=== PATIENT | female | born 1995 ===

== ENCOUNTER 2020-03-09 08:56 | Inpatient (IN) | payer MEDICAID ==
[2020-03-09] MEDS ORDERED: Sodium Chloride 0.9% 2.5 ML Syringe FLUSH PRN (09:27)
[2020-03-09] MEDS ORDERED: Ondansetron 4 MG/2 ML SDV IVPUSH PRN (09:27)
[2020-03-09] MEDS ORDERED: Sodium Chloride 0.9% 10 ML SDV IV PRN (09:27)
[2020-03-09] MEDS ORDERED: Methylergonovine 0.2 MG/1 ML Amp IM PRN (09:27)
[2020-03-09] MEDS ORDERED: Lidocaine 1% 50 ML MDV INJECT PRN (09:27)
[2020-03-09] MEDS ORDERED: Tranexamic Acid 1,000 MG in Sodium Chloride 0.9% 100 ML IV PRN (09:27)
[2020-03-09] MEDS ORDERED: Misoprostol 200 MCG Tab PO PRN (09:27)
[2020-03-09] MEDS ORDERED: Sodium Chloride 0.9% 10 ML Syringe FLUSH PRN (09:27)
[2020-03-09] MEDS ORDERED: Water For Irrigation,Sterile 1,000 ML Container IRR PRN (09:27)
[2020-03-09] MEDS ORDERED: Carboprost Tromethamine 250 MCG/1 ML Amp IM PRN (09:27)
[2020-03-09] MEDS ORDERED: Nalbuphine 10 MG/1 ML Vial IVPUSH PRN (09:27)
[2020-03-09] MEDS ORDERED: Oxytocin/0.9 % Sodium Chloride 30 UNIT/500 ML BAG IV SCH ×2 (09:30→18:00)
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
[2020-03-09] MEDS: Lactated Ringers 1,000 ML IV SCH ×2 (17:33→19:23)
[2020-03-09] MEDS ORDERED: Terbutaline 1 MG/ML SDV SUBCUT PRN (17:54)
[2020-03-09] MEDS ORDERED: ePHEDrine 50 MG/ML SDV ONE (18:27)
[2020-03-09] MEDS ORDERED: Bupivicaine/fentaNYL/NS 250 ML ONE (18:27)
--- NOTE | 2020-03-09 19:22 | PCM.PREANE ---
Preanesthetic Assessment - Procedure Proposed Procedure: placement of continuous labor epidural - Anesthesia/Transfusion/Family Hx Anesthesia History: Prior Anesthesia Without Reaction Transfusion History: No Prior Transfusion(s) - Review of Systems General: No Symptoms Pulmonary: No Symptoms Cardiovascular: No Symptoms Gastrointestinal: Other (some GERD symptoms with ) Neurological: No Symptoms Other: Reports: Depression, Anxiety (bipolar) - Physical Assessment NPO Status Date: 03/09/20 NPO Status Time: 16:00 (drinking water) Height: 5 ft 5 in Weight: 89.811 kg ASA Class: 2 Mental Status: Alert & Oriented x3 Airway Class: Mallampati = 2 Dentition: Reports: Normal Dentition Thyro-Mental Finger Breadths: 4 ROM/Head Extension: Full Lungs: Clear to Auscultation, Normal Respiratory Effort Cardiovascular: Regular Rate, Regular Rhythm - Lab Values: Laboratory Last Values WBC 9.27 K/uL (4.0-11.0) 03/09/20 09:45 RBC 3.71 M/uL (4.30-5.90) L 03/09/20 09:45 Hgb 9.9 g/dL (12.0-16.0) L 03/09/20 09:45 Hct 30.9 % (36.0-46.0) L 03/09/20 09:45 MCV 83.3 fL (80.0-98.0) 03/09/20 09:45 MCH 26.7 pg (27.0-32.0) L 03/09/20 09:45 MCHC 32.0 g/dL (31.0-37.0) 03/09/20 09:45 RDW Std Deviation 42.4 fl (28.0-62.0) 03/09/20 09:45 RDW Coeff of [place] 14 % (11.0-15.0) 03/09/20 09:45 Plt Count 160 K/uL (150-400) 03/09/20 09:45 MPV 12.00 fL (7.40-12.00) 03/09/20 09:45 Nucleated RBC % 0.0 /100WBC 03/09/20 09:45 Nucleated RBCs # 0 K/uL 03/09/20 09:45 Blood Type A NEGATIVE 03/09/20 09:45 Antibody Screen NEGATIVE 03/09/20 09:45 - Allergies Allergies/Adverse Reactions: Allergies Allergy/AdvReac Type Severity Reaction Status Date / Time adhesive tape Allergy Rash Verified 02/24/20 08:44 - Anesthesia Plan Pre-Op Medication Ordered: None - Acknowledgements Anesthesia Type Planned: Epidural Pt an Appropriate Candidate for the Planned Anesthesia: Yes Alternatives and Risks of Anesthesia Discussed w Pt/Guardian: Yes Pt/Guardian Understands and Agrees with Anesthesia Plan: Yes PreAnesthesia Questionnaire HEENT History: Reports: Impaired Vision Cardiovascular History: Reports: None Respiratory History: Reports: None Gastrointestinal History: Reports: None Genitourinary History: Reports: Other (See Below) (Recurrent BV) PUBLIC SPEAKER History: Reports: None Musculoskeletal History: Reports: None Neurological History: Reports: None Psychiatric History: Reports: Anxiety, Depression, Suicidal Ideation (03/04/2020, started on Fluoxentine 03/04/2020, verbal contract against self-harm, psychiatry appointment scheduled for 03/19/2020 at 1000 am.) Endocrine/Metabolic History: Reports: None Hematologic History: Reports: Anemia (Diluational anemia in ) Immunologic History: Reports: None Dermatologic History: Reports: None - Infectious Disease History Infectious Disease History: Reports: None - Past Surgical History HEENT Surgical History: Reports: Myringotomy w Tube(s) - SUBSTANCE USE Smoking Status *Q: Former Smoker Tobacco Use Within Last Twelve Months: No Second Hand Smoke Exposure: No Recreational Drug Use History: No - HOME MEDS Home Medications: Home Meds FLUoxetine [PROzac] 10 mg PO DAILY 03/09/20 [History] - CURRENT (IN HOUSE) MEDS Current Meds: Current Medications Carboprost Tromethamine (Hemabate Ds) 250 mcg IM ASDIRECTED PRN PRN Reason: Post Hemorrhage Lactated Ringer's (Ringers, Lactated) 1,000 mls @ 150 mls/hr IV ASDIRECTED JOCELYNE Last Admin: 03/09/20 17:33 Dose: 999 mls/hr Oxytocin/Sodium Chloride (Oxytocin 30 Unit/500 Ml-Ns) 30 unit in 500 mls @ 999 mls/hr IV TITRATE JOCELYNE Tranexamic Acid 1,000 mg/ (Sodium Chloride) 110 mls @ 660 mls/hr IV ONETIME PRN PRN Reason: Bleeding Oxytocin/Sodium Chloride (Oxytocin 30 Unit/500 Ml-Ns) 30 unit in 500 mls @ 2 mls/hr IV TITRATE JOCELYNE; Protocol Lidocaine HCl (Xylocaine 1%) 50 ml INJECT ONETIME PRN PRN Reason: Laceration repair Methylergonovine Maleate (Methergine) 0.2 mg IM ASDIRECTED PRN PRN Reason: Post Hemorrhage Misoprostol (Cytotec) 200 mcg PO ONETIME PRN PRN Reason: Post Hemorrhage Nalbuphine HCl (Nubain) 10 mg IVPUSH Q1H PRN PRN Reason: Pain (severe 7-10) Ondansetron HCl (Zofran) 4 mg IVPUSH Q6H PRN PRN Reason: Nausea/Vomiting Sodium Chloride (Saline Flush) 10 ml FLUSH ASDIRECTED PRN PRN Reason: Keep Vein Open Sodium Chloride (Saline Flush) 2.5 ml FLUSH ASDIRECTED PRN PRN Reason: Keep Vein Open Sodium Chloride (Normal Saline) 10 ml IV ASDIRECTED PRN PRN Reason: IV Use Sterile Water (Sterile Water For Irrigation) 1,000 ml IRR ASDIRECTED PRN PRN Reason: delivery Terbutaline Sulfate (Brethine) 0.25 mg SUBCUT ASDIRECTED PRN PRN Reason: Tacysystole Discontinued Medications Ephedrine Sulfate (Ephedrine Sulfate) Confirm Administered Dose 50 mg .ROUTE .STK-MED ONE Stop: 03/09/20 18:28 Fentanyl/Bupivacaine HCl (Fentanyl/Bupivacaine/Ns 2 Mcg-0.125% 250 Ml) Confirm Administered Dose 250 mls @ as directed .ROUTE .STK-MED ONE Stop: 03/09/20 18:28
[2020-03-09] MEDS ORDERED: oxyCODONE 5 MG Tab PO PRN (23:47)
[2020-03-09] MEDS ORDERED: Witch Hazel Medicated Pads 40/Jar TOP PRN (23:47)
[2020-03-09] MEDS ORDERED: Acetaminophen 500 MG Tab PO PRN ×2 (23:47)
[2020-03-09] MEDS ORDERED: Benzocaine/Menthol 20%-0.5% Spray 78 GM Cannister TOP PRN (23:47)
[2020-03-09] MEDS ORDERED: Bisacodyl 10 MG Supp RECTAL PRN (23:47)
[2020-03-09] MEDS ORDERED: Ibuprofen 400 MG Tab PO PRN (23:47)
[2020-03-09] MEDS ORDERED: Lanolin 100% Cream 7 GM Tube TOP PRN (23:47)
--- NOTE | 2020-03-09 23:58 | PCM.DEL ---
L & D Note - General Info Date of Service: 03/09/20 Mother's Due Date: 03/17/20 - Delivery Note Labor: Spontaneous, Augmented by Oxytocin Delivery Outcome: Livebirth Infant Delivery Method: Spontaneous Vaginal Delivery-Single Infant Delivery Mode: Spontaneous Presentation: Left Occiput Anterior (JANE) Nuchal Cord: None Anesthesia Type: Epidural Amniotic Fluid Description: Clear Episiotomy Type: None Laceration: None Placenta: Intact, Spontaneous ([place]) Cord: 3 Vessels Estimated Blood Loss: 200 Resuscitation Needed: No Spearman: Stimulated, Warmed, [place] Used Score 1 min: 8 Score 5 min: 9 Second Stage Interventions: Reports: Encouragement Given, Pushing Effectively Delivery Comments (Free Text/Narrative):: Aileen is a 24 yo 1-0-3 at 38.6 weeks ([place] 03/17/2020) S/P uncomplicated to viable term NBM with spontaneous cries at . A neg, RI, GBS neg. Agpars 06/07, weight 3700 g (8 lb 3 oz). NBM placed to maternal abdomen, warmed, dried, stimulated. Umbilical cord left intact until pulsation ceased, clamped x 2, cut by support person. Placenta delivered intact, [place], 3VC. Perineum intact. Uterus firm at U, scant rubra lochia. Mother and NBM left skin to skin with RNs at bedside. - General Info Date of Service: 03/09/20 Admission Dx/Problem (Free Text): Patient Status Order with Admit Dx/Problem 03/09/20 09:27 Patient Status [ADT] Routine Admission Diagnosis/Problem Admission Diagnosis/Problem - planned 03/09/20 10:15 Aileen is a 24 yo 1-0-3 at 38.6 weeks ([place] 03/17/2020) that presents to L& D today after SROM of clear, non-odorous fluid at 0730 am today. Patient reports ample movement and increasing intensity of uterine contractions since 0815 am. A neg, RI, GBS neg. Received 28-week RhoGam 12/16/2019. Pertinent hx inclused: PTL this , PTB past , exacerbation of depression, passive suicidal ideations in the last week (started Fluoxetine 2019), Rh negative maternal status. Functional Status: Reports: Pain Controlled - Review of Systems General: Reports: No Symptoms HEENT: Reports: No Symptoms Pulmonary: Reports: No Symptoms Cardiovascular: Reports: No Symptoms Gastrointestinal: Reports: No Symptoms, Other ( uterus) Genitourinary: Reports: No Symptoms Musculoskeletal: Reports: No Symptoms Skin: Reports: No Symptoms Neurological: Reports: No Symptoms Psychiatric: Reports: No Symptoms - Patient Data Weight - Most Recent: 198 lb I&O - Last 24 Hours: Intake & Output 03/09/20 03/09/20 03/10/20 14:59 22:59 06:59 Intake Total 1000 Balance 1000 Lab Results Last 24 Hours: Laboratory Results - last 24 hr 03/09/20 03/09/20 Range/Units 09:45 09:45 WBC 9.27 (4.0-11.0) K/uL RBC 3.71 L (4.30-5.90) M/uL Hgb 9.9 L (12.0-16.0) g/dL Hct 30.9 L (36.0-46.0) % MCV 83.3 (80.0-98.0) fL MCH 26.7 L (27.0-32.0) pg MCHC 32.0 (31.0-37.0) g/dL RDW Std Deviation 42.4 (28.0-62.0) fl RDW Coeff of Mojgan 14 (11.0-15.0) % Plt Count 160 (150-400) K/uL MPV 12.00 (7.40-12.00) fL Nucleated RBC % 0.0 /100WBC Nucleated RBCs # 0 K/uL Blood Type A NEGATIVE Antibody Screen NEGATIVE Med Orders - Current: Current Medications Acetaminophen (Tylenol Extra Strength) 500 mg PO Q4H PRN PRN Reason: Pain Acetaminophen (Tylenol Extra Strength) 1,000 mg PO Q4H PRN PRN Reason: Pain Benzocaine/Menthol (Dermoplast Pain Relief 20%-0.5% [place]) 78 gm TOP ASDIRECTED PRN PRN Reason: Perineal Comfort Measure Bisacodyl (Dulcolax) 10 mg RECTAL ONETIME PRN PRN Reason: Constipation Docusate Sodium (Colace) 100 mg PO BID PRN PRN Reason: Constipation Emollient Ointment (Lansinoh Hpa) 0 gm TOP ASDIRECTED PRN PRN Reason: Sore Nipples Ibuprofen (Motrin) 400 mg PO Q4H PRN PRN Reason: Pain Ibuprofen (Motrin) 800 mg PO Q6H PRN PRN Reason: Pain Oxycodone HCl (Oxycodone) 5 mg PO Q2H PRN PRN Reason: Pain Witch Roya (Tucks) 1 pad TOP ASDIRECTED PRN PRN Reason: comfort care Discontinued Medications Carboprost Tromethamine (Hemabate Ds) 250 mcg IM ASDIRECTED PRN PRN Reason: Post Hemorrhage Ephedrine Sulfate (Ephedrine Sulfate) Confirm Administered Dose 50 mg .ROUTE .STBringMeTheNews-MED ONE Stop: 03/09/20 18:28 Lactated Ringer's (Ringers, Lactated) 1,000 mls @ 150 mls/hr IV ASDIRECTED JOCELYNE Last Admin: 03/09/20 19:23 Dose: 500 mls/hr Oxytocin/Sodium Chloride (Oxytocin 30 Unit/500 Ml-Ns) 30 unit in 500 mls @ 999 mls/hr IV TITRATE JOCELYNE Tranexamic Acid 1,000 mg/ (Sodium Chloride) 110 mls @ 660 mls/hr IV ONETIME PRN PRN Reason: Bleeding Oxytocin/Sodium Chloride (Oxytocin 30 Unit/500 Ml-Ns) 30 unit in 500 mls @ 2 mls/hr IV TITRATE JOCELYNE; Protocol Last Titration: 03/09/20 22:03 Dose: 3 munits/min, 3 mls/hr Fentanyl/Bupivacaine HCl (Fentanyl/Bupivacaine/Ns 2 Mcg-0.125% 250 Ml) Confirm Administered Dose 250 mls @ as directed .ROUTE .sfilatino-MED ONE Stop: 03/09/20 18:28 Lidocaine HCl (Xylocaine 1%) 50 ml INJECT ONETIME PRN PRN Reason: Laceration repair Methylergonovine Maleate (Methergine) 0.2 mg IM ASDIRECTED PRN PRN Reason: Post Hemorrhage Misoprostol (Cytotec) 200 mcg PO ONETIME PRN PRN Reason: Post Hemorrhage Nalbuphine HCl (Nubain) 10 mg IVPUSH Q1H PRN PRN Reason: Pain (severe 7-10) Ondansetron HCl (Zofran) 4 mg IVPUSH Q6H PRN PRN Reason: Nausea/Vomiting Sodium Chloride (Saline Flush) 10 ml FLUSH ASDIRECTED PRN PRN Reason: Keep Vein Open Sodium Chloride (Saline Flush) 2.5 ml FLUSH ASDIRECTED PRN PRN Reason: Keep Vein Open Sodium Chloride (Normal Saline) 10 ml IV ASDIRECTED PRN PRN Reason: IV Use Sterile Water (Sterile Water For Irrigation) 1,000 ml IRR ASDIRECTED PRN PRN Reason: delivery Last Admin: 03/09/20 23:25 Dose: 1,000 ml Terbutaline Sulfate (Brethine) 0.25 mg SUBCUT ASDIRECTED PRN PRN Reason: Tacysystole - Exam General: Alert, Oriented HEENT: Pupils Equal, Pupils Reactive, Mucous Membr. Moist/[place] Neck: Supple Lungs: Clear to Auscultation, Normal Respiratory Effort Cardiovascular: Regular Rate, Regular Rhythm GI/Abdominal Exam: Normal Bowel Sounds, Soft, Non-Tender, No Organomegaly, No Distention, Other (Uterus firm at U) (Female) Exam: Normal External Exam, Vaginal Bleeding (Scant rubra lochia) Back Exam: Normal Inspection, Full Range of Motion Extremities: Normal Inspection, Normal Range of Motion, Non-Tender, No Pedal Edema, Normal Capillary Refill Skin: Warm, Dry, Intact Neurological: No New Focal Deficit, Other (Epidural analgesia) Psy/Mental Status: Alert, Normal Affect, Normal Mood - Problem List & Annotations (1) (normal spontaneous vaginal delivery) SNOMED Code(s): 92573089, [id number] Code(s): O80 - ENCOUNTER FOR FULL-TERM UNCOMPLICATED DELIVERY Status: Acute Priority: High Current Visit: Yes - Problem List Review Problem List Initiated/Reviewed/Updated: Yes - My Orders Last 24 Hours: My Active Orders 03/09/20 09:27 May Shower [RC] ASDIRECTED Notify Provider [RC] PRN Up ad Emmy [RC] ASDIRECTED Vital Signs [RC] PER UNIT ROUTINE 03/09/20 09:45 RPR (SYPHILIS SERO) W/ RFLX [REF] Routine 03/09/20 17:54 Bedrest Bathroom Privileges [RC] ASDIRECTED Communication Order [RC] ASDIRECTED Communication Order [RC] ASDIRECTED Notify Provider [RC] PRN Notify Provider [RC] STAT Oxygen Therapy [RC] ASDIRECTED Vaginal Exam [RC] PRN Vital Signs [RC] PER UNIT ROUTINE 03/09/20 23:47 Patient Status [ADT] Routine May Shower [RC] ASDIRECTED Up ad Emmy [RC] ASDIRECTED Vital Signs [RC] PER UNIT ROUTINE Acetaminophen [Tylenol Extra Strength] 1,000 mg PO Q4H PRN Acetaminophen [Tylenol Extra Strength] 500 mg PO Q4H PRN Benzocaine/Menthol [Dermoplast Pain Relief 20%-0.5% [place]] 78 gm TOP ASDIRECTED PRN Docusate Sodium [Colace] 100 mg PO BID PRN Ibuprofen [Motrin] 400 mg PO Q4H PRN Ibuprofen [Motrin] 800 mg PO Q6H PRN Lanolin [Lansinoh HPA] See Dose Instructions TOP ASDIRECTED PRN bisacodyL [Dulcolax] 10 mg RECTAL ONETIME PRN oxyCODONE 5 mg PO Q2H PRN witch Roya [Tucks] 1 pad TOP ASDIRECTED PRN Assess Lochia [WOMSER] Per Unit Routine Assess Uterine Involution [WOMSER] Per Unit Routine Ice Therapy [OM.PC] Per Unit Routine Perineal Care [OM.PC] Per Unit Routine Peripheral IV Discontinue [OM.PC] Routine Sitz Bath [OM.PC] Per Unit Routine Resuscitation Status Routine 03/09/20 23:48 Cooling Warming Measures [RC] ASDIRECTED 03/10/20 Breakfast Regular Diet [DIET] - Plan Plan:: Continue to normal POC S/P uncomplicated . See new orders.
[2020-03-10] MEDS: Ibuprofen 800 MG Tab PO PRN ×3 (00:16→17:42)
--- NOTE | 2020-03-10 08:05 | PCM.PNPP ---
- General Info Date of Service: 03/10/20 Admission Dx/Problem (Free Text): Patient Status Order with Admit Dx/Problem 03/09/20 09:27 Patient Status [ADT] Routine Admission Diagnosis/Problem Admission Diagnosis/Problem - planned 03/09/20 10:15 Aileen is a 24 yo 1-0-3 at 38.6 weeks ([place] 03/17/2020) that presents to L& D today after SROM of clear, non-odorous fluid at 0730 am today. Patient reports ample movement and increasing intensity of uterine contractions since 0815 am. A neg, RI, GBS neg. Received 28-week RhoGam 12/16/2019. Pertinent hx inclused: PTL this , PTB past , exacerbation of depression, passive suicidal ideations in the last week (started Fluoxetine 2019), Rh negative maternal status. Functional Status: Reports: Pain Controlled, Tolerating Diet, Ambulating, Urinating - Review of Systems General: Reports: No Symptoms HEENT: Reports: No Symptoms Pulmonary: Reports: No Symptoms Cardiovascular: Reports: No Symptoms Gastrointestinal: Reports: No Symptoms Genitourinary: Reports: No Symptoms Musculoskeletal: Reports: No Symptoms Skin: Reports: No Symptoms Neurological: Reports: No Symptoms Psychiatric: Reports: No Symptoms - General Info Date of Service: 03/10/20 - Patient Data Vital Signs - Most Recent: Last Vital Signs Temp 36.9 C 03/10/20 03:19 Pulse 85 03/10/20 03:19 Resp 16 03/10/20 03:19 BP 96/49 L 03/10/20 03:19 Pulse Ox 96 03/10/20 03:19 Weight - Most Recent: 89.811 kg I&O - Last 24 Hours: Intake & Output 03/09/20 03/10/20 03/10/20 22:59 06:59 14:59 Intake Total 1000 1400 Output Total 600 Balance 1000 800 Lab Results - Last 24 Hours: Laboratory Results - last 24 hr 03/09/20 03/09/20 03/10/20 Range/Units 09:45 09:45 00:38 WBC 9.27 (4.0-11.0) K/uL RBC 3.71 L (4.30-5.90) M/uL Hgb 9.9 L (12.0-16.0) g/dL Hct 30.9 L (36.0-46.0) % MCV 83.3 (80.0-98.0) fL MCH 26.7 L (27.0-32.0) pg MCHC 32.0 (31.0-37.0) g/dL RDW Std Deviation 42.4 (28.0-62.0) fl RDW Coeff of [place] 14 (11.0-15.0) % Plt Count 160 (150-400) K/uL MPV 12.00 (7.40-12.00) fL Nucleated RBC % 0.0 /100WBC Nucleated RBCs # 0 K/uL Blood Type A NEGATIVE Antibody Screen NEGATIVE Screen NEGATIVE (NEGATIVE) RhIG Candidate? YES Rhogam Indicated YES, BABY RH POS H Med Orders - Current: Current Medications Acetaminophen (Tylenol Extra Strength) 500 mg PO Q4H PRN PRN Reason: Pain Acetaminophen (Tylenol Extra Strength) 1,000 mg PO Q4H PRN PRN Reason: Pain Benzocaine/Menthol (Dermoplast Pain Relief 20%-0.5% [place]) 78 gm TOP ASDIRECTED PRN PRN Reason: Perineal Comfort Measure Last Admin: 03/10/20 00:15 Dose: 1 canister Bisacodyl (Dulcolax) 10 mg RECTAL ONETIME PRN PRN Reason: Constipation Docusate Sodium (Colace) 100 mg PO BID PRN PRN Reason: Constipation Emollient Ointment (Lansinoh Hpa) 0 gm TOP ASDIRECTED PRN PRN Reason: Sore Nipples Last Admin: 03/10/20 00:16 Dose: 1 tube Ibuprofen (Motrin) 400 mg PO Q4H PRN PRN Reason: Pain Ibuprofen (Motrin) 800 mg PO Q6H PRN PRN Reason: Pain Last Admin: 03/10/20 00:16 Dose: 800 mg Oxycodone HCl (Oxycodone) 5 mg PO Q2H PRN PRN Reason: Pain Witch Roya (Tucks) 1 pad TOP ASDIRECTED PRN PRN Reason: comfort care Discontinued Medications Carboprost Tromethamine (Hemabate Ds) 250 mcg IM ASDIRECTED PRN PRN Reason: Post Hemorrhage Ephedrine Sulfate (Ephedrine Sulfate) Confirm Administered Dose 50 mg .ROUTE .STK-MED ONE Stop: 03/09/20 18:28 Lactated Ringer's (Ringers, Lactated) 1,000 mls @ 150 mls/hr IV ASDIRECTED JOCELYNE Last Admin: 03/09/20 19:23 Dose: 500 mls/hr Oxytocin/Sodium Chloride (Oxytocin 30 Unit/500 Ml-Ns) 30 unit in 500 mls @ 999 mls/hr IV TITRATE JOCELYNE Tranexamic Acid 1,000 mg/ (Sodium Chloride) 110 mls @ 660 mls/hr IV ONETIME PRN PRN Reason: Bleeding Oxytocin/Sodium Chloride (Oxytocin 30 Unit/500 Ml-Ns) 30 unit in 500 mls @ 2 mls/hr IV TITRATE JOCELYNE; Protocol Last Titration: 03/09/20 23:34 Dose: 500 mls/hr Fentanyl/Bupivacaine HCl (Fentanyl/Bupivacaine/Ns 2 Mcg-0.125% 250 Ml) Confirm Administered Dose 250 mls @ as directed .[facility]TE [facility] Stop: 03/09/20 18:28 Lidocaine HCl (Xylocaine 1%) 50 ml INJECT ONETIME PRN PRN Reason: Laceration repair Methylergonovine Maleate (Methergine) 0.2 mg IM ASDIRECTED PRN PRN Reason: Post Hemorrhage Misoprostol (Cytotec) 200 mcg PO ONETIME PRN PRN Reason: Post Hemorrhage Nalbuphine HCl (Nubain) 10 mg IVPUSH Q1H PRN PRN Reason: Pain (severe 7-10) Ondansetron HCl (Zofran) 4 mg IVPUSH Q6H PRN PRN Reason: Nausea/Vomiting Sodium Chloride (Saline Flush) 10 ml FLUSH ASDIRECTED PRN PRN Reason: Keep Vein Open Sodium Chloride (Saline Flush) 2.5 ml FLUSH ASDIRECTED PRN PRN Reason: Keep Vein Open Sodium Chloride (Normal Saline) 10 ml IV ASDIRECTED PRN PRN Reason: IV Use Sterile Water (Sterile Water For Irrigation) 1,000 ml IRR ASDIRECTED PRN PRN Reason: delivery Last Admin: 03/09/20 23:25 Dose: 1,000 ml Terbutaline Sulfate (Brethine) 0.25 mg SUBCUT ASDIRECTED PRN PRN Reason: Tacysystole - Interaction Infant Disposition, : New Point in Room with Family Infant Interaction: Holding Feeding: Breastfed ; Nursed Well Support Person: Friend - Recovery Exam Fundal Tone: Firm Fundal Level: At Umbilicus Fundal Placement: Midline Lochia Amount: Scant, Small Lochia Color: Rubra/Red Perineum Description: Intact, Minimal Bruising/Swelling Episiotomy/Laceration: None Bladder Status: Voiding - Exam General: Alert, Oriented, Cooperative, No Acute Distress Lungs: Normal Respiratory Effort GI/Abdominal Exam: Soft, Non-Tender Extremities: Normal Inspection, Normal Range of Motion, Non-Tender, No Pedal Edema Skin: Warm, Dry, Intact Wound/Incisions: Healing Well Neurological: No New Focal Deficit, Normal Speech, Normal Tone, Strength Equal Bilateral, Sensation Intact Psy/Mental Status: Alert, Normal Affect, Normal Mood - Problem List & Annotations (1) (normal spontaneous vaginal delivery) SNOMED Code(s): 20049561, 086834056 Code(s): O80 - ENCOUNTER FOR FULL-TERM UNCOMPLICATED DELIVERY Status: Acute Priority: High Current Visit: Yes - Problem List Review Problem List Initiated/Reviewed/Updated: Yes - Plan Plan:: Continue to normal POC S/P uncomplicated . See new orders. PPD#1 A: last pm. Healthy baby boy. Breast feeding well. VSS, AF, No complaints. Stable P: continue pp plan of care.
[2020-03-10] MEDS: Docusate Sodium 100 MG Cap PO PRN ×2 (08:51→20:53)
--- NOTE | 2020-03-10 12:28 | PCM48HPAN ---
Post Anesthesia Note - EVALUATION WITHIN 48HRS OF ANESTHETIC Vital Signs in Normal Range: Yes Patient Participated in Evaluation: Yes Respiratory Function Stable: Yes Airway Patent: Yes Cardiovascular Function Stable: Yes Hydration Status Stable: Yes Pain Control Satisfactory: Yes Nausea and Vomiting Control Satisfactory: Yes Mental Status Recovered: Yes Vital Signs: Last Vital Signs Temp 36.2 C 03/10/20 08:30 Pulse 87 03/10/20 08:30 Resp 16 03/10/20 08:30 BP 132/60 03/10/20 08:30 Pulse Ox 95 03/10/20 08:30
[2020-03-11] MEDS: Ibuprofen 800 MG Tab PO PRN ×2 (02:45→12:01)
--- NOTE | 2020-03-11 08:15 | PCM.DCSUM1 ---
Discharge Summary - Hospital Course Free Text/Narrative:: Discharge home with baby. Follow up in the clinic in 6 weeks for routine plan of care. Diagnosis: Stroke: No Modified Poinsett Scale: No Symptoms at All Modified Poinsett Scale Score: 0 - Discharge Data Discharge Date: 03/11/20 Discharge Disposition: Home, Self-Care 01 Condition: Good - Referral to Home Health Primary Care Physician: PCP Unknown - Patient Instructions Diet: Regular Diet as Tolerated, Drink 8-10+ Glasses/Day Activity: As Tolerated, No Strenuous Activities, Rest and Relax Today Driving: May Drive Today Showering/Bathing: May Shower Notify Provider of: Fever, Increased Pain, Swelling and Redness, Drainage, Nausea and/or Vomiting - Discharge Plan *PRESCRIPTION DRUG MONITORING PROGRAM REVIEWED*: Not Applicable *COPY OF PRESCRIPTION DRUG MONITORING REPORT IN PATIENT IND[place]: Not Applicable Prescriptions/Med Rec: Ibuprofen [Motrin] 800 mg PO Q6H PRN #90 tablet PRN Reason: Pain Home Medications: Home Meds FLUoxetine [PROzac] 10 mg PO DAILY 03/09/20 [History] Ibuprofen [Motrin] 800 mg PO Q6H PRN #90 tablet 03/11/20 [Rx] Oxygen Therapy Mode: Room Air Referrals: Brooks Crispin,[facility] [Ordering Only Provider] - Faith Gonzales CNM [Mid-] - 04/21/20 1:00 pm - Discharge Summary/Plan Comment DC Time >30 min.: Yes - General Info Date of Service: 03/11/20 Admission Dx/Problem (Free Text: Patient Status Order with Admit Dx/Problem 03/09/20 09:27 Patient Status [ADT] Routine Admission Diagnosis/Problem Admission Diagnosis/Problem - planned 03/09/20 10:15 Aileen is a 24 yo 1-0-3 at 38.6 weeks ([place] 03/17/2020) that presents to L& D today after SROM of clear, non-odorous fluid at 0730 am today. Patient reports ample movement and increasing intensity of uterine contractions since 0815 am. A neg, RI, GBS neg. Received 28-week RhoGam 12/16/2019. Pertinent hx inclused: PTL this , PTB past , exacerbation of depression, passive suicidal ideations in the last week (started Fluoxetine 2019), Rh negative maternal status. Functional Status: Reports: Pain Controlled, Tolerating Diet, Ambulating, Urinating - Review of Systems General: Reports: No Symptoms HEENT: Reports: No Symptoms Pulmonary: Reports: No Symptoms Cardiovascular: Reports: No Symptoms Gastrointestinal: Reports: No Symptoms Genitourinary: Reports: No Symptoms Musculoskeletal: Reports: No Symptoms Skin: Reports: No Symptoms Neurological: Reports: No Symptoms Psychiatric: Reports: No Symptoms - Patient Data Vitals - Most Recent: Last Vital Signs Temp 97 F 03/11/20 04:00 Pulse 71 03/11/20 04:00 Resp 16 03/11/20 04:00 BP 102/60 03/11/20 04:00 Pulse Ox 97 03/11/20 04:00 Weight - Most Recent: 198 lb I&O - Last 24 hours: Intake & Output 03/10/20 03/11/20 03/11/20 22:59 06:59 14:59 Intake Total 2 Balance 2 Lab Results - Last 24 hrs: Laboratory Results - last 24 hr 03/09/20 03/10/20 Range/Units 09:45 00:38 RPR Non-Reac (Non-Reac) Screen NEGATIVE (NEGATIVE) RhIG Candidate? YES Rhogam Indicated YES, BABY RH POS H Med Orders - Current: Current Medications Acetaminophen (Tylenol Extra Strength) 500 mg PO Q4H PRN PRN Reason: Pain Acetaminophen (Tylenol Extra Strength) 1,000 mg PO Q4H PRN PRN Reason: Pain Last Admin: 03/10/20 08:50 Dose: 1,000 mg Benzocaine/Menthol (Dermoplast Pain Relief 20%-0.5% [place]) 78 gm TOP ASDIRECTED PRN PRN Reason: Perineal Comfort Measure Last Admin: 03/10/20 00:15 Dose: 1 canister Bisacodyl (Dulcolax) 10 mg RECTAL ONETIME PRN PRN Reason: Constipation Docusate Sodium (Colace) 100 mg PO BID PRN PRN Reason: Constipation Last Admin: 03/10/20 20:53 Dose: 100 mg Emollient Ointment (Lansinoh Hpa) 0 gm TOP ASDIRECTED PRN PRN Reason: Sore Nipples Last Admin: 03/10/20 00:16 Dose: 1 tube Ibuprofen (Motrin) 400 mg PO Q4H PRN PRN Reason: Pain Ibuprofen (Motrin) 800 mg PO Q6H PRN PRN Reason: Pain Last Admin: 03/11/20 02:45 Dose: 800 mg Oxycodone HCl (Oxycodone) 5 mg PO Q2H PRN PRN Reason: Pain Witch Roya (Tucks) 1 pad TOP ASDIRECTED PRN PRN Reason: comfort care Discontinued Medications Carboprost Tromethamine (Hemabate Ds) 250 mcg IM ASDIRECTED PRN PRN Reason: Post Hemorrhage Ephedrine Sulfate (Ephedrine Sulfate) Confirm Administered Dose 50 mg .ROUTE .STK-MED ONE Stop: 03/09/20 18:28 Lactated Ringer's (Ringers, Lactated) 1,000 mls @ 150 mls/hr IV ASDIRECTED JOCELYNE Last Admin: 03/09/20 19:23 Dose: 500 mls/hr Oxytocin/Sodium Chloride (Oxytocin 30 Unit/500 Ml-Ns) 30 unit in 500 mls @ 999 mls/hr IV TITRATE JOCELYNE Tranexamic Acid 1,000 mg/ (Sodium Chloride) 110 mls @ 660 mls/hr IV ONETIME PRN PRN Reason: Bleeding Oxytocin/Sodium Chloride (Oxytocin 30 Unit/500 Ml-Ns) 30 unit in 500 mls @ 2 mls/hr IV TITRATE JOCELYNE; Protocol Last Titration: 03/09/20 23:34 Dose: 500 mls/hr Fentanyl/Bupivacaine HCl (Fentanyl/Bupivacaine/Ns 2 Mcg-0.125% 250 Ml) Confirm Administered Dose 250 mls @ as directed .ROUTE .[employer] ONE Stop: 03/09/20 18:28 Lidocaine HCl (Xylocaine 1%) 50 ml INJECT ONETIME PRN PRN Reason: Laceration repair Methylergonovine Maleate (Methergine) 0.2 mg IM ASDIRECTED PRN PRN Reason: Post Hemorrhage Misoprostol (Cytotec) 200 mcg PO ONETIME PRN PRN Reason: Post Hemorrhage Nalbuphine HCl (Nubain) 10 mg IVPUSH Q1H PRN PRN Reason: Pain (severe 7-10) Ondansetron HCl (Zofran) 4 mg IVPUSH Q6H PRN PRN Reason: Nausea/Vomiting Sodium Chloride (Saline Flush) 10 ml FLUSH ASDIRECTED PRN PRN Reason: Keep Vein Open Sodium Chloride (Saline Flush) 2.5 ml FLUSH ASDIRECTED PRN PRN Reason: Keep Vein Open Sodium Chloride (Normal Saline) 10 ml IV ASDIRECTED PRN PRN Reason: IV Use Sterile Water (Sterile Water For Irrigation) 1,000 ml IRR ASDIRECTED PRN PRN Reason: delivery Last Admin: 03/09/20 23:25 Dose: 1,000 ml Terbutaline Sulfate (Brethine) 0.25 mg SUBCUT ASDIRECTED PRN PRN Reason: Tacysystole - Exam General: Reports: Alert, Oriented, Cooperative, No Acute Distress Lungs: Reports: Clear to Auscultation, Normal Respiratory Effort Cardiovascular: Reports: Regular Rate, Regular Rhythm GI/Abdominal Exam: Soft, Non-Tender (Female) Exam: Deferred Rectal (Female) Exam: Deferred Back Exam: Reports: Normal Inspection, Full Range of Motion Extremities: Normal Inspection, Normal Range of Motion, Non-Tender, Normal Capillary Refill Skin: Reports: Warm, Dry, Intact Neurological: Reports: No New Focal Deficit, Normal Gait, Normal Speech, Normal Tone, Strength Equal Bilateral, Sensation Intact Psy/Mental Status: Reports: Alert, Normal Affect, Normal Mood
== END 2020-03-11 14:35 | disposition home or self-care (01) | DRG 807 ==
LOC: MW.OBCHECK 08:56 → MW.OB 08:57 → MW.OBCHECK 09:26 → MW.OB 09:27 → OBSVTOIN 23:33 → MW.OB 03-10 02:00
PROVIDERS: ADMIT Obstetrics & Gynecology; ATTEND Obstetrics & Gynecology
PROC: 10E0XZZ Delivery of Products of Conception, External Approach (ICD-10-PCS; principal; 2020-03-09)
PROC: 3E0R3BZ Introduction of Anesthetic Agent into Spinal Canal, Percutaneous Approach (ICD-10-PCS; 2020-03-09)
DX: O99.02 Anemia complicating childbirth (principal); Z37.0 Single live birth; D64.9 Anemia, unspecified; O99.344 Other mental disorders complicating childbirth; F41.9 Anxiety disorder, unspecified; F32.9 Major depressive disorder, single episode, unspecified; Z3A.38 38 weeks gestation of pregnancy; Z87.891 Personal history of nicotine dependence
CPT/HCPCS: 36415; 36430; 51702; 59025; 59409; 85027; 85460; 86592; 86593; 86850; 86900; 86901; A9270-GY; J2590; J2792; J3010; J7120

== ENCOUNTER 2020-07-10 16:39 | Emergency (ER) | payer MEDICAID ==
[2020-07-10] MEDS ORDERED: Lidocaine 5% 700 MG Patch TOP ONE (17:11)
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
[2020-07-10] MEDS ORDERED: Ibuprofen 600 MG Tab PO ONE (17:20)
== END 2020-07-10 17:59 | disposition home or self-care (01) ==
LOC: MW.ED 16:39
DX: S46.912A Strain of unspecified muscle, fascia and tendon at shoulder and upper arm level, left arm, initial encounter (principal); M75.22 Bicipital tendinitis, left shoulder; F41.9 Anxiety disorder, unspecified; F32.9 Major depressive disorder, single episode, unspecified; Z91.048 Other nonmedicinal substance allergy status; Z79.899 Other long term (current) drug therapy; X50.9XXA Other and unspecified overexertion or strenuous movements or postures, initial encounter
CPT/HCPCS: 99283; A9270; 99282

== ENCOUNTER 2020-11-21 14:18 | Emergency (ER) | payer MEDICAID ==
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
== END 2020-11-21 15:30 | disposition home or self-care (01) ==
LOC: MW.ED 14:18
DX: L73.9 Follicular disorder, unspecified (principal); Z91.048 Other nonmedicinal substance allergy status; Z79.899 Other long term (current) drug therapy
CPT/HCPCS: 99282

== ENCOUNTER 2020-12-01 16:45 | Emergency (ER) | payer MEDICAID ==
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
== END 2020-12-01 17:23 | disposition home or self-care (01) ==
LOC: MW.ED 16:45
DX: S99.922A Unspecified injury of left foot, initial encounter (principal); Z91.048 Other nonmedicinal substance allergy status; Z79.899 Other long term (current) drug therapy; X58.XXXA Exposure to other specified factors, initial encounter
CPT/HCPCS: 99282; 99283

== ENCOUNTER 2021-02-14 13:21 | Emergency (ER) | payer MEDICAID, OTHER ==
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
== END 2021-02-14 14:21 | disposition home or self-care (01) ==
LOC: MW.ED 13:21
DX: L30.9 Dermatitis, unspecified (principal); Z91.048 Other nonmedicinal substance allergy status; Z79.899 Other long term (current) drug therapy
CPT/HCPCS: 99282; 99283

== ENCOUNTER 2021-05-21 16:46 | Emergency (ER) | payer MEDICAID, OTHER ==
[2021-05-21] MEDS ORDERED: Acetaminophen 500 MG Tab PO ONE (17:11)
[2021-05-21] MEDS ORDERED: Sodium Chloride 0.9% 2.5 ML Syringe FLUSH PRN (17:11)
[2021-05-21] MEDS ORDERED: Ketorolac 15 MG/ML SDV IVPUSH STA (17:11)
[2021-05-21] MEDS ORDERED: Sodium Chloride 0.9% 1,000 ML IV ONE (17:11)
[2021-05-21] MEDS ORDERED: Sodium Chloride 0.9% 10 ML Syringe FLUSH PRN (17:11)
[2021-05-21] MEDS ORDERED: Ondansetron 4 MG/2 ML SDV IVPUSH ONE (17:11)
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
--- NOTE | 2021-05-21 18:03 | CR ---
Indication: SOB Technique: Chest 1 view Comparison: None Findings/Impression: Cardiovascular and mediastinum: Heart size and vasculature are normal in caliber and appearance. Mediastinum is within normal limits. Lungs and pleural space: Lungs are clear. No sign of infiltrate or mass. No sign of pleural effusion. No pneumothorax. Bones and soft tissues: A small ovoid sclerotic focus in the right humeral neck could represent a bone island. Dictated by Mike Euceda MD @ 05/21/2021 6:01:[address] Mike Euceda @ May 21 2021 6:01PM
[2021-05-21 18:10] LABS: BLOOD UREA NITROGEN,BUN 12 mg/dL (7.0-18.0); CARBON DIOXIDE,CO2 28.5 mmol/L (21.0-32.0); CHLORIDE,CL 104 mmol/L (98-107); GLUCOSE RANDOM 86 mg/dL (74-106); POTASSIUM,K 4.1 mmol/L (3.5-5.1); SODIUM,NA 140 mmol/L (136-145)
== END 2021-05-21 18:50 | disposition home or self-care (01) ==
LOC: MW.ED 16:46
DX: U07.1 COVID-19 (principal); Z91.048 Other nonmedicinal substance allergy status
CPT/HCPCS: 36415; 71045; 80053; 83605; 84484; 84703; 85025; 87635; 93005; 96374; 96375; 99285; A9270; J1885; J2405; J7030; U0002